=== PATIENT | male | born 1955 | race Caucasian/White ===

== ENCOUNTER 2016-09-01 05:31 | Day surgery (SDC) | payer BC ==
[2016-08-23 18:26] LABS: HEMOGLOBIN 13.8 g/dL (13.6-17.8)
[2016-08-23 18:27] LABS: HEMATOCRIT 41.5 % (40.0-51.0)
[2016-08-23 18:42] LABS: BUN (BLOOD UREA NITROGEN) 12 MG/DL (6-23); CALCIUM, SERUM 9.4 MG/DL (8.5-10.4); CHLORIDE, SERUM 106 MMOL/L (96-112); CO2 (CARBON DIOXIDE) 27 MMOL/L (24-34); CREATININE 0.83 MG/DL (0.70-1.30); GFR AFRICAN AMERICAN 109 ML/MIN (>=60); GFR NON AFRICAN AMERICAN 94 ML/MIN (>=60); GLUCOSE, SERUM 145 MG/DL (60-99); SODIUM, SERUM 141 MMOL/L (135-148)
--- NOTE | ~2016-09-01 | OP ---
Record Of Operation [facility] [address] [place]. 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 PROCEDURE: 1. Microscopic and navigation-assisted surgery. 2. Right C5-6, and left and right C6-7 hemilaminotomy, foraminotomy, and partial facetectomy. SURGEON: Landen Headley D.O. GEOGRAPHY HEAD: Carlos Torres. ANESTHESIA: General. ESTIMATED BLOOD LOSS: 40 mL. INDICATION FOR SURGERY: This is a 61-year-old male, who has undergone previous C4 to C7 ACDF and actually had excellent outcome, he was doing really well, but he fell off at the end of the stage, had markedly increasing pain in his shoulder and arms, and his hands become almost frozen, due to pain and swelling. He had repeat imaging which showed some foraminal stenosis that persisted laterally. This was in the location as listed above. Due to the fact that he had this persistent foraminal narrowing and because his arms and hands become such problem, we felt that a decompression would be necessary. He is brought to surgery having failed conservative care with the above diagnosis. Prior to surgery, risks, benefits, alternatives, and expectations have been explained. Consent form has been signed. DESCRIPTION OF PROCEDURE: The patient was identified in preop holding area, antibiotic prophylaxis was given. Neurophysiology monitoring leads were inserted. The patient brought to the operative suite, general anesthetic including endotracheal intubation was administered. He was placed in a supine position on fluoroscopic Cedrick spine frame. His neck was in neutral alignment. The scalp was painted with Betadine solution. Pichardo three-point fixation attached to the skull using 60 pounds of torque in standard position. The patient was then attached to the top portion of the Cedrick spine frame. He was in a clamshell position. He was rotated 180 degrees into a prone position. Again, bony prominences were carefully padded. His arms and shoulders taped by his side. The hairline was shaved. Isolation drapes were placed. The neck was scrubbed with Hibiclens solution. DuraPrep was painted. Sterile drapes were applied. Because of the complexity of surgery and the need to identify the correct level of surgery intraoperatively, as well as desire to carry out the safest and most precise dissection with least amount of radiation exposure, I felt intraoperative navigation was mandatory. Record Of Operation [facility] [address] [facility] [place]. [address] NAME: LISA YOUNGBLOOD : 53 STATUS : ADM IN PAT#: [id number] AGE: 61 ADM/REG DATE : 09/01/16 MR#: [id number] REPORT SERV DATE: 09/01/16 DICTATED BY: LANDEN HEADLEY DATE: 09/01/16 REPORT STATUS : Draft TRANSCRIBED BY: SUZAN DATE: 09/01/[address] scan was obtained. CT information was used to register the navigational system and with navigational assistance, I was able identify on the right side of C5-6 and C6-7. An approximately a 2 cm skin incision was carried out. A blunt navigated probe was placed through the fascia and muscle. Initially, I docked at C5-6 at the junction of the lateral lamina and the medial portion of the facet joint at C5-6. The 18 METRx tube was attached to a flex arm attached to the table. Microscope was sterilely draped and used throughout the remainder of the procedure. Under microscopic dissection, we carefully visualized the inferior lamina of C5 and the superior lamina of C6. We also visualized the facet joint. I used a 3 mm rigo bur, a 2 mm rigo bur, a 1 mm Kerrison rongeur, and I carried out a hemilaminotomy removing the inferior third of the lamina of C5, approximately a third of the superior lamina of C6 laterally, and then I removed approximately 50% of the facet joint. This nicely decompressed the nerve completely. The nerve was free of any compression. The wound was irrigated. Meticulous hemostasis was obtained. We then removed the tubular retractor. I then moved to the distal portion of the incision and placed a tubular retractor over the C6-7, and carried out the same identical hemilaminotomy, foraminotomy, and partial facetectomy. Again, the retractor was removed, wounds were irrigated. The fascial opening was closed with a single interrupted #1 Vicryl suture. The subcutaneous tissue was closed with 2-0 Vicryl sutures, 2-0 vertical mattress nylon suture used for skin closure at the end of the case. The last step in the case was to go to the left-side, and identified C6-7 with navigational assistance, I cut a 1-1/2 cm to skin incision, 18 mm METRx tube placed over the junction of the C6-7 lamina and facet joint, and again a hemilaminotomy, foraminotomy, and partial facetectomy, and of each of the three location, I removed at least 40% to 50% of the facet joint. Once again, the retractor was removed and standard wound closure was carried out. Meticulous hemostasis had been obtained prior to the wound closure. At the end of the case, the subcutaneous tissue was closed with 2-0 Vicryl sutures, 2-0 vertical mattress nylon suture was used for skin closure. Sterile dressings were applied. The patient returned to supine position, awakened, extubated, taken to recovery room in satisfactory condition having tolerated procedure well. Sponge, needle, and instrument counts were correct. No intraoperative complications noted. /MODL Landen Headley D.O. / [id number] CC: Record Of Operation [address] [address] NAME: LISA YOUNGBLOOD : 53 STATUS : ADM IN PAT#: [id number] AGE: 61 ADM/REG DATE : 09/01/16 MR#: [id number] REPORT SERV DATE: 09/01/16 DICTATED BY: LANDEN HEADLEY DATE: 09/01/16 REPORT STATUS : Draft TRANSCRIBED BY: MODL DATE: 09/01/16 Stef Gee M.D.
[~2016-09-01 05:31] MED LIST: CIP5 PO; CLINDA150 PO; DIL4TAB PO; FLOMAX4 PO; GLUCOPHAGE1000 MG PO; HALF81 PO; HYDRO PO; LOTE10 PO; METHOC500B PO; NEUR300 PO; OXYCOD PO; P1 PO; V5 PO; XODOL 10-300 T1 EACH PO; ZOCOR20 PO; ZOCOR40 PO
== END 2016-09-01 17:04 | disposition home or self-care (01) ==
LOC: SDC 05:31
PROVIDERS: Orthopaedic Surgery Orthopaedic Surgery of the Spine
PROC: 01N10ZZ Release Cervical Nerve, Open Approach (ICD-10-PCS; principal; 2016-09-01 07:15)
DX: M48.02 Spinal stenosis, cervical region (principal); M47.12 Other spondylosis with myelopathy, cervical region; I10 Essential (primary) hypertension; E11.9 Type 2 diabetes mellitus without complications; E78.00 Pure hypercholesterolemia, unspecified; G89.29 Other chronic pain; Z98.1 Arthrodesis status; Z91.81 History of falling; Z79.82 Long term (current) use of aspirin; Z79.84 Long term (current) use of oral hypoglycemic drugs; Z79.899 Other long term (current) drug therapy; Z98.890 Other specified postprocedural states
CPT/HCPCS: 63020; 63035; 80048; 82962; 85014; 85018; 88304; 93005; J0690; J1170; J1644; J2250; J2405; J2710; J3010 ×2; J3370